=== PATIENT | female | born 1985 | race Caucasian/White ===

== ENCOUNTER 2023-07-06 17:12 | Outpatient (CLI) | payer BC, SELFPAY ==
[2023-07-07] LABS: Chlamydia DNA Amplified* Not Detected (No Detected); GC DNA Amplified* Not Detected (No Detected)
== END 2023-07-06 17:13 | disposition home or self-care (01) ==
LOC: LKVREF 17:13
PROVIDERS: Visit Provider Physician Assistant Medical
DX: Z00.00 Encounter for general adult medical examination without abnormal findings (principal)
CPT/HCPCS: 87491; 87591

== ENCOUNTER 2023-07-14 15:39 | Outpatient (CLI) | payer BC, SELFPAY ==
--- NOTE | 2023-07-14 16:00 | CT_ITS ---
Patient: ARIK CONNELLY Facility:?[facility] Patient ID:?[id number] Site Patient ID:?[id number]. Site :?[id number] Study:?CT-Sinus WITHOUT-07/14/2023 3:58:48 PM Ordering Physician:JEANNA Final Report: Indication: Deviated nasal septum Technique: CT of the sinuses was performed without IV contrast. Please note that all CT scans at this facility use dose modulation, iterative reconstruction, and/or weight-based dosing when appropriate to reduce radiation dose to as low as reasonably achievable. Comparison: None. Findings: Bones: Normal. Frontal sinuses: Clear. Ethmoid sinuses: [id number] mucosal thickening. Maxillary sinuses: Left maxillary sinus mucosal retention cyst versus polyp. Moderate right and mild left mucosal thickening. Sphenoid sinuses: Small amount of frothy debris in the right sphenoid sinus. Nasal cavity/septum: Moderate leftward deviation of the nasal septum. Hypertrophy of the inferior right nasal turbinate. Soft tissues: Normal. Visualized brain: Normal. Additional comment: None. Impression: 1. Moderate leftward deviation of the nasal septum. 2. Hypertrophy of the inferior right nasal turbinate. 3. [id number]-[id number] mucosal thickening of the paranasal sinuses. Left maxillary sinus mucosal retention cyst versus polyp. Please note that all CT scans at this facility use dose modulation, iterative reconstruction, and/or weight-based dosing when appropriate to reduce radiation dose to as low as reasonably achievable. Dictated by Mitchell Purcell MD @ 07/14/2023 4:10:48 PM Signed by:?Mitchell Purcell MD @07/14/2023 4:10:48 PM (Electronic Signature)
== END 2023-07-14 15:40 | disposition home or self-care (01) ==
LOC: CT 15:40
PROVIDERS: Visit Provider Physician Assistant Medical
DX: J34.2 Deviated nasal septum (principal); J33.8 Other polyp of sinus
CPT/HCPCS: 70486